=== PATIENT | female | born 2000 | race African-American/Black ===

== ENCOUNTER 2021-01-04 17:01 | Emergency (ER) | payer OTHER ==
[~2021-01-04] VITALS: Ht 162.6 cm; Wt 93.2 kg
[2021-01-04 19:37] LABS: STREP SCREEN NEGATIVE
[2021-01-04 20:14] VITALS: BP 126/67; PULSE 64; TEMP 98.6
== END 2021-01-04 20:14 | disposition home or self-care (01) ==
LOC: COL.ER 17:01
PROVIDERS: Nurse Practitioner Family
DX: J02.9 Acute pharyngitis, unspecified (principal); J30.2 Other seasonal allergic rhinitis